=== PATIENT | male | born 1980 | race Caucasian/White ===

== ENCOUNTER 2017-09-21 03:47 | Emergency (ER) | payer OTHER ==
[2017-09-21 03:56] VITALS: BP 137/68; PULSE 97; RESP 18; TEMP 97.8
[2017-09-21] MEDS ORDERED: DIPH,PERTUS(ACELL)TETVAC-LF 0.5 ML VIAL IM ONE (04:10)
--- NOTE | 2017-09-21 04:18 | ED ---
General Adult HPI - General Chief complaint: Wound/Laceration Stated complaint: I[facility]-finger lac Time Seen by Provider: 09/21/17 03:58 Source: patient, RN notes reviewed Mode of arrival: ambulatory Limitations: no limitations - History of Present Illness Initial comments: 37-year-old male presents for evaluation of left third digit laceration. Patient's sister was a significant amount of bleeding. He is unable to control this bleeding prior to arrival. 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 Denies any other injury. Uncertain of his tetanus status. Patient has no other medical problems. - Related Data Allergies Allergy/AdvReac Type Severity Reaction Status Date / Time No Known Allergies Allergy Verified 09/21/17 03:56 Review of Systems ROS Statement: Those systems with pertinent positive or pertinent negative responses have been documented in the HPI. ROS Other: All systems not noted in ROS Statement are negative. Past Medical History Past Medical History: No Reported History History of Any Multi-Drug Resistant Organisms: None Reported Past Surgical History: No Surgical Hx Reported Past Psychological History: ADD/ADHD Smoking Status: Heavy tobacco smoker Past Alcohol Use History: Occasional Past Drug Use History: None Reported General Exam Limitations: no limitations General appearance: alert, in no apparent distress Head exam: Present: atraumatic, normocephalic Eye exam: Present: normal appearance, PERRL ENT exam: Present: mucous membranes dry Neck exam: Present: normal inspection. Absent: tenderness Respiratory exam: Present: normal lung sounds bilaterally. Absent: respiratory distress Cardiovascular Exam: Present: regular rate, normal rhythm Extremities exam: Present: other (Laceration to the left third digit distal phalanx. This involves the nail. This is a evaluation of both nail and a component of the nailbed. There is no deep repairable laceration.) Course Vital Signs 09/21/17 03:52 Temperature 97.8 F Pulse Rate 97 Respiratory 18 Rate Blood Pressure 137/68 O2 Sat by Pulse 98 Oximetry Medical Decision Making - Medical Decision Making 37-year-old male presents with laceration and avulsion. There is a avulsion of the distal nail left third finger with underlying nail bed injury. No repairable laceration. No exposed bone. The eponychium and is not involved. Wound is cleansed with tap water and Betadine. Hemostasis is achieved. Bacitracin applied and sterile dressing. Tetanus is updated. Patient will return with signs of infection. Follow-up with primary care physician. Disposition Clinical Impression: Laceration Disposition: HOME SELF-CARE Condition: Good Instructions: Laceration (ED) Referrals: None,Stated [Primary Care Provider] - 1-2 days Seema Florence MD [REFERRING] - 1-2 days Time of Disposition: 04:18
== END 2017-09-21 04:26 | disposition home or self-care (01) ==
LOC: EC 03:47
DX: S61.213A Laceration without foreign body of left middle finger without damage to nail, initial encounter (principal); F17.200 Nicotine dependence, unspecified, uncomplicated; Z23 Encounter for immunization; Y99.0 Civilian activity done for income or pay; W45.8XXA Other foreign body or object entering through skin, initial encounter
CPT/HCPCS: 90471; 90715; 99282

== ENCOUNTER 2020-09-11 16:41 | Observation (INO) | payer BC, OTHER ==
[2020-09-11] MEDS ORDERED: ASPIRIN 81 MG PO STA (17:50)
[2020-09-11] MEDS ORDERED: SODIUM CHLORIDE 0.9% 500 ML 500 ML IV STA (17:50)
--- NOTE | 2020-09-11 17:55 | ED ---
Chest Pain HPI - General Chief Complaint: Chest Pain Stated Complaint: chest pain Time Seen by Provider: 09/11/20 17:40 Source: patient Mode of arrival: ambulatory Limitations: no limitations - History of Present Illness Initial Comments: Patient is a 40-year-old male presenting to emergency Department with complaints of chest pain that started earlier today. Patient states he was having some mild discomfort in the right side of his chest earlier this morning and throughout the day has been moving towards the center and towards the left side of his chest. He describes it the pain as pressure, tightness feeling. He states it is intermittent, not constant. He states he doesn't really feel short of breath, no fever, no recent cough. He denies history of asthma or COPD, he is an every day smoker. He denies history of heart disease. He takes no medications. He states he has had pneumonia in the past. He does admit to some nausea yesterday and today, no vomiting, no abdominal pain, no diarrhea. He denies having a headache or blurry vision. He has no further complaints. Upon arrival to the ER, his tonsils 107, rest of vitals normal. - Related Data Home Medications Medication Instructions Recorded Confirmed No Known Home Medications 09/11/20 09/11/20 Allergies Allergy/AdvReac Type Severity Reaction Status Date / Time No Known Allergies Allergy Verified 09/11/20 18:51 Review of Systems ROS Statement: Those systems with pertinent positive or pertinent negative responses have been documented in the HPI. ROS Other: All systems not noted in ROS Statement are negative. EKG Findings - EKG Comments: EKG Findings:: Sinus tachycardia, no signs of acute ischemia. Ventricular rate 105, HI interval 146, QT 334. Past Medical History Past Medical History: No Reported History History of Any Multi-Drug Resistant Organisms: None Reported Past Surgical History: No Surgical Hx Reported Past Psychological History: ADD/ADHD Past Alcohol Use History: Occasional Past Drug Use History: None Reported General Exam - General Exam Comments Initial Comments: GENERAL: Patient is well-developed and well-nourished. Patient is nontoxic and in no acute distress. HEAD: Atraumatic, normocephalic. EYES: Pupils equal round and reactive to light, extraocular movements intact, sclera anicteric, conjunctiva are normal. Eyelids were unremarkable. ENT: TMs normal, nares patent, oropharynx clear without exudates. Moist mucous membranes. NECK: Normal range of motion, supple without lymphadenopathy or JVD. LUNGS: Unlabored respirations. Breath sounds clear to auscultation bilaterally and equal. No wheezes rales or rhonchi. HEART: Regular rate and rhythm without murmurs, rubs or gallops. ABDOMEN: Soft, nontender, normoactive bowel sounds. No guarding, no rebound. No masses appreciated. : Deferred MUSCULOSKELETAL: Normal extremities with adequate strength and normal range of motion, no pitting or edema. No clubbing or cyanosis. NEUROLOGICAL: Patient is alert and oriented x 3. Motor and sensory are also intact. Cranial nerves II through XII grossly intact. Symmetrical smile. Normal speech, normal gait. PSYCH: Normal mood, normal affect. SKIN: Warm, Dry, normal turgor, no rashes or lesions noted. Limitations: no limitations Course Vital Signs 09/11/20 09/11/20 16:57 17:59 Temperature 98.6 F Pulse Rate 107 H Respiratory 18 18 Rate Blood Pressure 133/90 O2 Sat by Pulse 98 Oximetry Chest Pain [facility] Patient is a 40-year-old male here for chest tightness and pressure that started this morning. His vital signs are stable he's afebrile. His EKG did not show any acute process but was slightly tachycardia. Denies history of heart disease, and is not taking any medications. Labs showed leukocytosis 17.2, d- dimer is negative, rest of labs are normal, normal troponin. Chest x-ray does show increased interstitial into the compared to old exam, could relate to interstitial pneumonia. Given patient's history and chest discomfort, patient will be admitted for serial troponins, be started on treatment for pneumonia, dose of Rocephin and azithromycin given in the ER. Patient is agreement with this plan of care. Patient accepted by Dr. Delgadillo. Case discussed with Dr. Brambila. Disposition Clinical Impression: Chest pain, Pneumonia Disposition: ADMITTED IP TO THIS HOSP Condition: Stable Referrals: None,Stated [Primary Care Provider] - 1-2 days Decision Date: 09/11/20 Decision Time: 19:00
[2020-09-11 18:14] LABS: Basophils # (A) 0.2 k/uL (0-0.2); Basophils % (A) 1 %; Eosinophils # (A) 0.4 k/uL (0-0.7); Eosinophils % (A) 2 %; HCT 49.6 % (39.0-53.0); Lymphocytes # (A) 3.3 k/uL (1.0-4.8); Lymphocytes % (A) 19 %; MCH 31.6 pg (25.0-35.0); MCHC 34.3 g/dL (31.0-37.0); MCV 92.2 fL (80.0-100.0); Mean Platelet Volume 8.6; Monocytes # (A) 0.8 k/uL (0-1.0); Monocytes % (A) 5 %; Neutrophils # (A) 12.4 k/uL (1.3-7.7); Neutrophils % (A) 72 %; Platelet Count 284 k/uL (150-450); RBC 5.38 m/uL (4.30-5.90); RDW 13.5 % (11.5-15.5); WBC 17.2 k/uL (3.8-10.6)
[2020-09-11 18:22] LABS: ALT 51 U/L (4-49); AST 44 U/L (17-59); African American GFR (CKD) >90 (>60 ml/min/1.73 sqM); Albumin 4.6 g/dL (3.5-5.0); Alkaline Phosphatase 116 U/L (38-126); Anion Gap 9 mmol/L; Blood Urea Nitrogen 4 mg/dL (9-20); Calcium 9.8 mg/dL (8.4-10.2); Carbon Dioxide 23 mmol/L (22-30); Chloride 105 mmol/L (98-107); Glucose 106 mg/dL (74-99); Magnesium 1.9 mg/dL (1.6-2.3); Non-African American GFR(CKD) >90 (>60 ml/min/1.73 sqM); Potassium 3.8 mmol/L (3.5-5.1); Sodium 137 mmol/L (137-145); Total Bilirubin 0.6 mg/dL (0.2-1.3)
--- NOTE | 2020-09-11 18:27 | XR ---
EXAMINATION TYPE: XR chest 2V DATE OF EXAM: 09/11/2020 COMPARISON: 11/08/2015 HISTORY: Chest pain TECHNIQUE: FINDINGS: There is no heart failure nor confluent pneumonic infiltrate. There is some coarsening of i nterstitial markings. Heart size is normal. There are chest leads. Costophrenic angles are clear. IMPRESSION: Mild increased interstitial pulmonary density compared to old exam could relate to minima l interstitial pneumonia. Normal heart.
[2020-09-11 18:37] LABS: D-Dimer 0.21 mg/L FEU (<0.60); INR 0.9 (<1.2); Partial Thromboplastin Time 27.8 sec (22.0-30.0); Prothrombin Time 9.9 sec (9.0-12.0)
[2020-09-11] MEDS ORDERED: NITROGLYCERIN SL TABS 0.4 MG TAB SUBLINGUAL PRN (18:56)
[2020-09-11] MEDS ORDERED: cefTRIAXone IN SWFI 1,000 MG/10 ML SYRINGE IVP STA (19:00)
[2020-09-11] MEDS ORDERED: AZITHROMYCIN 500 MG TAB PO STA (19:00)
[2020-09-12 00:57] LABS: Cholesterol 217 mg/dL (<200); HDL Cholesterol 18 mg/dL (40-60); Triglycerides 487 mg/dL (<150)
--- NOTE | 2020-09-12 08:20 | P.HPIM ---
History of Present Illness This is a pleasant 40 years old male with no significant past medical history. He does not follow up with PCP because he just got his medical insurance. He presents because of chest pain of one-day duration of about 3-4/10 in severity felt like dull and sharp, mainly on the right side and then moved to the left side with pain also in both arms, also patient feels like something stuck in his throat on stroking. He denies coughing or dyspnea. No fever or chills. His most about 1.5 pack per day, patient counseled to quit and he agrees but he declined nicotine patch. Occasional alcohol and no illicit drugs Vitals stable. Labs showed leukocytosis with WBC of 17.8, rest of CBC, BMP and liver enzymes were unremarkable. INR is normal at 0.9, d-dimer is negative at 0.21, serial troponins are negative with less than 0.012. EKG is not available in the electronic records Chest x-ray: Mild increased interstitial pulmonary density compared to old exam could lead to minimal interstitial pneumonia. Normal heart Emergency room patient received Zithromax and Rocephin and aspirin 325 mg Review of Systems CONSTITUTIONAL: No fever, no malaise, no fatigue. HEENT: No recent visual problems or hearing problems. Denied any sore throat. CARDIOVASCULAR: No orthopnea, PND, no palpitations, no syncope. PULMONARY: No shortness of breath, no cough, no hemoptysis. GASTROINTESTINAL: No diarrhea, no nausea, no vomiting, no abdominal pain. Normoactive bowel sounds. NEUROLOGICAL: No headaches, no weakness, no numbness. HEMATOLOGICAL: Denies any bleeding or petechiae. GENITOURINARY: Denies any burning micturition, frequency, or urgency. MUSCULOSKELETAL/RHEUMATOLOGICAL: Denies any joint pain, swelling, or any muscle pain. ENDOCRINE: Denies any polyuria or polydipsia. Past Medical History Past Medical History: No Reported History History of Any Multi-Drug Resistant Organisms: None Reported Past Surgical History: No Surgical Hx Reported Past Anesthesia/Blood Transfusion Reactions: No Reported Reaction Past Psychological History: ADD/ADHD Smoking Status: Current every day smoker Past Alcohol Use History: Occasional Past Drug Use History: None Reported Medications and Allergies Home Medications Medication Instructions Recorded Confirmed Type No Known Home Medications 09/11/20 09/11/20 History Allergies Allergy/AdvReac Type Severity Reaction Status Date / Time No Known Allergies Allergy Verified 09/11/20 18:51 Physical Exam Vitals: Vital Signs Temp Pulse Pulse Resp BP BP Pulse Ox 09/12/20 03:00 98.2 F 80 15 113/70 94 L 09/11/20 21:00 97.8 F 88 16 126/79 98 09/11/20 19:42 100 20 117/78 97 09/11/20 17:59 18 09/11/20 16:57 98.6 F 107 H 18 133/90 98 Intake and Output 09/11/20 09/12/20 09/12/20 22:59 06:59 14:59 Intake Total 240 540 Balance 240 540 Intake: Oral 240 540 Other: Voiding Method Toilet Toilet # Voids 1 2 Weight 90.718 kg GENERAL: The patient is alert and oriented x3, not in any acute distress. Well developed, well nourished. HEENT: Pupils are round and equally reacting to light. EOMI. No scleral icterus. No conjunctival pallor. Normocephalic, atraumatic. No pharyngeal erythema. No thyromegaly. CARDIOVASCULAR: S1 and S2 present. No murmurs, rubs, or gallops. PULMONARY: Chest is clear to auscultation, no wheezing or crackles. ABDOMEN: Soft, nontender, nondistended, normoactive bowel sounds. No palpable organomegaly. MUSCULOSKELETAL: No joint swelling or deformity. EXTREMITIES: No cyanosis, clubbing, or pedal edema. NEUROLOGICAL: Gross neurological examination did not reveal any focal deficits. SKIN: No rashes. No petechiae Results CBC & Chem 7: 09/11/20 18:07 09/11/20 18:07 Labs: Abnormal Lab Results - Last 24 Hours (Table) 09/11/20 09/11/20 09/11/20 Range/Units 18:07 18:07 23:49 WBC 17.2 H (3.8-10.6) k/uL Neutrophils # 12.4 H (1.3-7.7) k/uL BUN 4 L (9-20) mg/dL Glucose 106 H (74-99) mg/dL ALT 51 H (4-49) U/L Triglycerides 487 H (<150) mg/dL Cholesterol 217 H (<200) mg/dL HDL Cholesterol 18 L (40-60) mg/dL Thrombosis Risk Factor Assmnt - Choose All That Apply Each Factor Represents 1 point: Obesity (BMI >25) Thrombosis Risk Factor Assessment Total Risk Factor Score: 1 Thrombosis Risk Factor Assessment Level: Low Risk Assessment and Plan Assessment: Chest pain, rule out cardiac causes. d-dimer is negative at 0.21. Possible interstitial pneumonia Nicotine dependence Plan: this is a pleasant 80 years old male who presents with chest pain and possible pneumonia. We'll do serial troponin, cardiology consult, check echocardiogram. Continue with antibiotics. Labs and medication were reviewed.. Continue same treatment. Continue with symptomatic treatment. Resume home medication. Monitor lytes and vitals. DVT and GI prophylaxis. Further recommendations depends on the clinical course of the patient DVT prophylaxis: Subcutaneous heparin GI Prophylaxis: Pepcid
[2020-09-12] MEDS ORDERED: ASPIRIN 325 MG TAB PO SCH (09:00)
[2020-09-12] MEDS ORDERED: FAMOTIDINE 20 MG/2 ML VIAL IV SCH (09:00)
[2020-09-12] MEDS: HEPARIN SODIUM,PORCINE 5,000 UNIT/ML 1 ML VIAL SQ SCH ×2 (09:10→20:06)
[2020-09-12] MEDS: METOPROLOL TARTRATE 25 MG TAB PO SCH (09:11)
--- NOTE | 2020-09-12 10:05 | P.CRDCN ---
History of Present Illness History of present illness: HISTORY OF PRESENTING ILLNESS This is a pleasant 40-year-old male past medical history significant for chronic nicotine dependence. His father had 4-way bypass in his mid-40's. He denies personal history of coronary artery disease and does not follow in the office with a systems development consultant. We have been asked to see in consultation for chest pain. He states for the previous 3-4 days he has been experiencing sharp pain in his chest mostly on the right anterior region. The pain is described as brief and sharp in nature. There is no radiation or associated symptoms. He is coughing and has been for a couple days. His pain is sometimes exacerbated by deep breathing and coughing but other times comes for no specific reason. DIAGNOSTICS EKG reveals sinus tachycardia heart rate 105 with non-specific changes. Chest xray reveals mild increased interstitial pulmonary density could relate to interstitial pneumonia. Laboratory reviewed, WBC 17.2, hemoglobin 17, platelets 284, d-dimer 0.21, sodium 137, potassium 3.8, creatinine 0.74, magnesium 1.9, cardiac enzymes negative 3, triglycerides 487 and total cholesterol 217. He takes no daily cardiac medications and does not follow regularly with the PCP. REVIEW OF SYSTEMS At the time of my exam: CONSTITUTIONAL: Denies fever or chills. CARDIOVASCULAR: Denies chest pain, shortness of breath, orthopnea, PND or palpitations. RESPIRATORY: Denies cough. GASTROINTESTINAL: Denies abdominal pain, diarrhea, constipation, nausea or vomiting. MUSCULOSKELETAL: Denies myalgias. NEUROLOGIC: Denies numbness, tingling or weakness. ENDOCRINE: Denies fatigue, weight change, polydipsia or polyurina. GENITOURINARY: Denies burning, hematuria or urgency with micturation. HEMATOLOGIC: Denies history of anemia or bleeding. PHYSICAL EXAMINATION Blood pressure 113/73 heart rate 88 afebrile and maintaining oxygen saturation on room air. CONSTITUTIONAL: No apparent distress. HEENT: Head is normocephalic. Pupils are equal, round. Sclerae anicteric. Mucous membranes of the mouth are moist. No JVD. No carotid bruit. CHEST EXAMINATION: Lungs are clear to auscultation. No chest wall tenderness is noted on palpation or with deep breathing. HEART EXAMINATION: Regular rate and rhythm. S1, S2 heard. No murmurs, gallops or rub. ABDOMEN: Soft, nontender. Positive bowel sounds. EXTREMITIES: 2+ peripheral pulses, no lower extremity edema and no calf tenderness. NEUROLOGIC EXAMINATION: Patient is awake, alert and oriented x3. ASSESSMENT Chest pain, pleuritic in nature secondary to pneumonia Pneumonia Leuckocytosis Dyslipidemia Elevated fasting blood glucose Chronic nicotine dependence Family history of premature coronary artery disease PLAN An acute coronary event has been ruled out. Continue medication for treatment of pneumonia. Check hgb A1C. Obtain 2D echocardiogram and doppler study to assess cardiac structure and func tion. Initiate atorvastatin 40 mg daily and lopressor 25 mg daily. Decrease aspirin to 81 mg daily. Recommend ongoing treatment for pneumonia and we will pursue outpatient stress testing. Smoking cessation recommended. Thank you kindly for this consultation. Nurse Practitioner note has been reviewed, I agree with a documented findings and plan of care. Patient was seen and examined. Past Medical History Past Medical History: No Reported History History of Any Multi-Drug Resistant Organisms: None Reported Past Surgical History: No Surgical Hx Reported Past Anesthesia/Blood Transfusion Reactions: No Reported Reaction Past Psychological History: ADD/ADHD Smoking Status: Current every day smoker Past Alcohol Use History: Occasional Past Drug Use History: None Reported Medications and Allergies Home Medications Medication Instructions Recorded Confirmed Type No Known Home Medications 09/11/20 09/11/20 History Allergies Allergy/AdvReac Type Severity Reaction Status Date / Time No Known Allergies Allergy Verified 09/11/20 18:51 Physical Exam Vitals: Vital Signs Temp Pulse Pulse Resp BP BP Pulse Ox 09/12/20 09:00 98.0 F 88 18 113/73 95 09/12/20 03:00 98.2 F 80 15 113/70 94 L 09/11/20 21:00 97.8 F 88 16 126/79 98 09/11/20 19:42 100 20 117/78 97 09/11/20 17:59 18 09/11/20 16:57 98.6 F 107 H 18 133/90 98 Intake and Output 09/11/20 09/12/20 09/12/20 22:59 06:59 14:59 Intake Total 240 540 Balance 240 540 Intake: Oral 240 540 Other: Voiding Method Toilet Toilet Toilet # Voids 1 2 2 Weight 90.718 kg Results 09/11/20 18:07 09/11/20 18:07 Cardiac Enzymes 09/11/20 09/11/20 09/11/20 Range/Units 18:07 18:07 20:53 AST 44 (17-59) U/L Troponin I <0.012 <0.012 (0.000-0.034) ng/mL 09/11/20 Range/Units 23:49 AST (17-59) U/L Troponin I <0.012 (0.000-0.034) ng/mL Coagulation 09/11/20 Range/Units 18:07 PT 9.9 (9.0-12.0) sec APTT 27.8 (22.0-30.0) sec Lipids 09/11/20 Range/Units 23:49 Triglycerides 487 H (<150) mg/dL Cholesterol 217 H (<200) mg/dL HDL Cholesterol 18 L (40-60) mg/dL CBC 09/11/20 Range/Units 18:07 WBC 17.2 H (3.8-10.6) k/uL RBC 5.38 (4.30-5.90) m/uL Hgb 17.0 (13.0-17.5) gm/dL Hct 49.6 (39.0-53.0) % Plt Count 284 (150-450) k/uL Comprehensive Metabolic Panel 09/11/20 Range/Units 18:07 Sodium 137 (137-145) mmol/L Potassium 3.8 (3.5-5.1) mmol/L Chloride 105 (98-107) mmol/L Carbon Dioxide 23 (22-30) mmol/L BUN 4 L (9-20) mg/dL Creatinine 0.74 (0.66-1.25) mg/dL Glucose 106 H (74-99) mg/dL Calcium 9.8 (8.4-10.2) mg/dL AST 44 (17-59) U/L ALT 51 H (4-49) U/L Alkaline Phosphatase 116 (38-126) U/L Total Protein 8.0 (6.3-8.2) g/dL Albumin 4.6 (3.5-5.0) g/dL Current Medications Generic Name Dose Route Start Last Admin Trade Name Freq PRN Reason Stop Dose Admin Aspirin 325 mg 09/12/20 09:00 09/12/20 09:11 Aspirin 325 Mg Tab PO 325 mg DAILY JOHN Administration Azithromycin 500 mg 09/12/20 19:00 Azithromycin 500 Mg Tab PO DAILY@1900 [facility] Famotidine 20 mg 09/12/20 09:00 09/12/20 09:10 Famotidine 20 Mg/2 Ml Vial IV 20 mg Q12HR JOHN Administration Heparin Sodium (Porcine) 5,000 unit 09/12/20 09:00 09/12/20 09:10 Heparin Sodium,Porcine 5,000 Unit/Ml 1 Ml Vial SQ 5,000 unit Q12HR JOHN Administration Ceftriaxone Sodium 1 gm/ 50 mls @ 100 mls/hr 09/12/20 09:00 09/12/20 09:10 Sodium Chloride IVPB 100 mls/hr Q24HR JOHN Administration Metoprolol Tartrate 25 mg 09/12/20 09:00 09/12/20 09:11 Metoprolol Tartrate 25 Mg Tab PO 25 mg DAILY JOHN Administration Nitroglycerin 0.4 mg 09/11/20 18:56 Nitroglycerin Sl Tabs 0.4 Mg Tab SUBLINGUAL Q5M PRN Chest Pain Intake and Output 09/11/20 09/12/20 09/12/20 22:59 06:59 14:59 Intake Total 240 540 Balance 240 540 Intake: Oral 240 540 Other: Voiding Method Toilet Toilet Toilet # Voids 1 2 2 Weight 90.718 kg 09/11/20 18:07 09/11/20 18:07
--- NOTE | 2020-09-12 10:08 | P.CNPUL ---
History of Present Illness Reason for consult: dyspnea, cough, chest pain Chief complaint: Chest pain or shortness of breath for one day duration History of present illness: This is a 40-year-old male with the significant history of smoking one pack per day patient is otherwise in good state of health for last 24-48 hours started having severe type of pleuritic chest pain with some inspiratory component pain was retrosternal both side of the chest started yesterday get intense brought him into the hospital, patient has no code exposure but cannot deny any subtle exposure, he does have cough shortness of breath on Thursday day duration, his chest x-ray significant for interstitial infiltrate, WBC count is high, cardiovascular services have been consulted as well, I was asked to evaluate the patient for pneumonia, patient has been on antibiotics, his pain severity however has improved, Review of Systems All systems: negative Past Medical History Past Medical History: No Reported History History of Any Multi-Drug Resistant Organisms: None Reported Past Surgical History: No Surgical Hx Reported Past Anesthesia/Blood Transfusion Reactions: No Reported Reaction Past Psychological History: ADD/ADHD Smoking Status: Current every day smoker Past Alcohol Use History: Occasional Past Drug Use History: None Reported Medications and Allergies Home Medications Medication Instructions Recorded Confirmed Type No Known Home Medications 09/11/20 09/11/20 History Allergies Allergy/AdvReac Type Severity Reaction Status Date / Time No Known Allergies Allergy Verified 09/11/20 18:51 Physical Exam Vitals: Vital Signs Temp Pulse Pulse Resp BP BP Pulse Ox 09/12/20 09:00 98.0 F 88 18 113/73 95 09/12/20 03:00 98.2 F 80 15 113/70 94 L 09/11/20 21:00 97.8 F 88 16 126/79 98 09/11/20 19:42 100 20 117/78 97 09/11/20 17:59 18 09/11/20 16:57 98.6 F 107 H 18 133/90 98 Intake and Output 09/11/20 09/12/20 09/12/20 22:59 06:59 14:59 Intake Total 240 540 Balance 240 540 Intake: Oral 240 540 Other: Voiding Method Toilet Toilet Toilet # Voids 1 2 2 Weight 90.718 kg - Constitutional General appearance: average body habitus, disheveled - EENT Eyes: EOMI, PERRLA Ears: bilateral: normal - Neck Neck: normal ROM Carotids: bilateral: upstroke normal Thyroid: bilateral: normal size - Respiratory Respiratory: bilateral: CTA - Cardiovascular Rhythm: regular Heart sounds: normal: S1, S2 - Gastrointestinal General gastrointestinal: normal bowel sounds - Integumentary Integumentary: normal turgor - Neurologic Neurologic: CNII-XII intact - Musculoskeletal Musculoskeletal: gait normal, generalized weakness, strength equal bilaterally - Psychiatric Psychiatric: A&O x's 3, appropriate affect, intact judgment & insight Results - Laboratory Findings CBC and BMP: 09/11/20 18:07 09/11/20 18:07 PT/INR, D-dimer PT 9.9 sec (9.0-12.0) 09/11/20 18:07 INR 0.9 (<1.2) 09/11/20 18:07 D-Dimer 0.21 mg/L FEU (<0.60) 09/11/20 18:07 Abnormal lab findings: Abnormal Labs 09/11/20 09/11/20 09/11/20 18:07 18:07 23:49 WBC 17.2 H Neutrophils # 12.4 H BUN 4 L Glucose 106 H ALT 51 H Triglycerides 487 H Cholesterol 217 H HDL Cholesterol 18 L - Diagnostic Findings Chest x-ray: report reviewed, image reviewed (Finding as noted above) Assessment and Plan Assessment: Bilateral retrosternal chest pain with symptoms of shortness of breath and cough Bilateral interstitial pneumonia covid19 cannot be excluded Leukocytosis History of smoking and nicotine use History of snoring likely sleep disorder breathing and sleep apnea Plan: Agree with cardiovascular evaluation Broad-spectrum antibiotics Deep breathing exercise incentive spirometry Check for covid testing Order inflammation parameters Ordered d-dimer, if elevated may need a spiral CT scan of the chest Further recommendations pending plan of care as per clinical response of the patient Patient need outpatient COPD evaluation and polysomnogram Time with Patient: Greater than 30
--- NOTE | 2020-09-12 10:13 | XR ---
EXAMINATION TYPE: XR chest 1V DATE OF EXAM: 09/12/2020 COMPARISON: 09/11/2020 HISTORY: Pneumonia, chest pain TECHNIQUE: Single frontal view of the chest is obtained. FINDINGS: Subsegmental changes at the right lung base. Heart size normal. No overt failure or pneumo thorax. No sizable pleural effusion. IMPRESSION: Basilar atelectasis favored over pneumonia.
[2020-09-12] MEDS: ATORVASTATIN 40 MG TAB PO SCH (10:32)
[2020-09-12 11:29] LABS: C Reactive Protein 27.8 mg/L (<10.0)
--- NOTE | 2020-09-12 12:55 | ECHOF ---
Referral Reason:Rule out heart disease MEASUREMENTS -------- HEIGHT: 165.1 cm WEIGHT: 90.7 kg BP: 133/90 RVIDd: 3.4 cm (< 3.3) IVSd: 1.1 cm (0.6 - 1.1) LVIDd: 3.2 cm (3.9 - 5.3) LVPWd: 1.1 cm (0.6 - 1.1) IVSs: 1.7 cm LVIDs: 1.9 cm LVPWs: 1.7 cm LAESV Index (A-L): 19.22 ml/m Ao Diam: 3.0 cm (2.0 - 3.7) AV Cusp: 2.2 cm (1.5 - 2.6) MV EXCURSION: 18.919 mm (> 18.000) MV EF SLOPE: 64 mm/s (70 - 150) EPSS: 0.5 cm MV E Vern: 0.94 m/s MV DecT: 190 ms MV A Vern: 0.94 m/s MV E/A Ratio: 1.00 RAP: 5.00 mmHg RVSP: 22.79 mmHg FINDINGS -------- Sinus rhythm. This was a technically adequate study. The left ventricular size is normal. There is mild concentric left ventricular hypertrophy. Overa ll left ventricular systolic function is normal with, an EF between 55 - 60 %. The diastolic fillin g pattern is normal for the age of the patient 6.34. The right ventricle is mildly enlarged. Normal LA size by volume 22+/-6 ml/m2. The right atrial size is normal. Interatrial and interventricular septum intact. The aortic valve is trileaflet and appears structurally normal. There is no evidence of aortic regu rgitation. There is no evidence of aortic stenosis. No mitral regurgitation. Mild tricuspid regurgitation present. There is no evidence of pulmonary hypertension. The right v entricular systolic pressure, as measured by Doppler, is 22.79mmHg. There is no pulmonic regurgitation present. The aortic root size is normal. Normal inferior vena cava with normal inspiratory collapse consistent with estimated right atrial pre ssure of 5 mmHg. There is no pericardial effusion. CONCLUSIONS -------- 1. The left ventricular size is normal. 2. There is mild concentric left ventricular hypertrophy. 3. Overall left ventricular systolic function is normal with, an EF between 55 - 60 %. 4. The diastolic filling pattern is normal for the age of the patient 6.34 5. The right ventricle is mildly enlarged. 6. Mild tricuspid regurgitation present. SALES CORRESPONDENT: Hanane Blake RDCS
[2020-09-12 17:03] LABS: Hemoglobin A1C 6.1 % (4.0-6.0)
[2020-09-12] MEDS ORDERED: AZITHROMYCIN 500 MG TAB PO SCH (19:00)
[2020-09-12] MEDS: FAMOTIDINE 20 MG TAB PO SCH (20:06)
[2020-09-12 21:16] LABS: Ferritin 109.9 ng/mL (22.0-322.0)
[2020-09-13 08:50] VITALS: BP 136/76; PULSE 92; RESP 14; TEMP 98
[2020-09-13] MEDS: METOPROLOL TARTRATE 25 MG TAB PO SCH (08:52)
[2020-09-13] MEDS: HEPARIN SODIUM,PORCINE 5,000 UNIT/ML 1 ML VIAL SQ SCH (08:52)
[2020-09-13] MEDS: FAMOTIDINE 20 MG TAB PO SCH (08:52)
[2020-09-13] MEDS: ATORVASTATIN 40 MG TAB PO SCH (08:52)
[2020-09-13] MEDS ORDERED: ASPIRIN 81 MG PO SCH (09:00)
--- NOTE | 2020-09-13 09:36 | P.PN ---
Subjective HISTORY OF PRESENTING ILLNESS This is a pleasant 40-year-old male past medical history significant for chronic nicotine dependence. His father had 4-way bypass in his mid-40's. He denies personal history of coronary artery disease and does not follow in the office with a patient care representative. He is seen and examined sitting up in bed in no acut e distress. Repeat chest xray this morning reveals basilar atelectasis favored over pneumonia. Blood pressure 136/76 heart rate 92 afebrile and maintaining oxygen saturation on room air. Laboratory data reviewed, hgb A1C 6.1. Echocardiogram obtained revealed preserved LV systolic function with EF 55-60%. PHYSICAL EXAMINATION CONSTITUTIONAL: No apparent distress. HEENT: Head is normocephalic. Pupils are equal, round. Sclerae anicteric. Mucous membranes of the mouth are moist. No JVD. No carotid bruit. CHEST EXAMINATION: Lungs are clear to auscultation. No chest wall tenderness is noted on palpation or with deep breathing. HEART EXAMINATION: Regular rate and rhythm. S1, S2 heard. No murmurs, gallops or rub. EXTREMITIES: 2+ peripheral pulses, no lower extremity edema and no calf tenderne ss. ASSESSMENT Chest pain, pleuritic in nature secondary to pneumonia Pneumonia Leuckocytosis Dyslipidemia Elevated fasting blood glucose Chronic nicotine dependence Family history of premature coronary artery disease PLAN Stable on current medical regimen from a cardiac perspective. We will pursue outpatient stress testing in the office in 2 weeks. Follow up with Dr. Jhaveri. We will follow along as needed. Nurse Practitioner note has been reviewed, I agree with a documented findings and plan of care. Patient was seen and examined. Objective - Vital Signs Vital signs: Vital Signs Temp 98.0 F 09/13/20 08:50 Pulse 92 09/13/20 08:50 Resp 14 09/13/20 08:50 BP 136/76 09/13/20 08:50 Pulse Ox 97 09/13/20 08:50 Intake & Output 09/12/20 09/13/20 09/13/20 18:59 06:59 18:59 Intake Total 770 Output Total 2 Balance 770 -2 Intake: Intake, IV Titration 50 Amount cefTRIAXone 1 gm In 50 Sodium Chloride 0.9% 50 ml @ 100 mls/hr IVPB Q24HR [facility] Rx#:[id number] Oral 720 Output: Urine 2 Other: Voiding Method Toilet # Voids 2 0 - Labs CBC & Chem 7: 09/11/20 18:07 09/11/20 18:07 Labs: Abnormal Lab Results - Last 24 Hours (Table) 09/12/20 09/12/20 Range/Units 10:47 10:47 Hemoglobin A1c 6.1 H (4.0-6.0) % C-Reactive Protein 27.8 H (<10.0) mg/L
[2020-09-13 09:47] LABS: Basophils # (A) 0.1 k/uL (0-0.2); Basophils % (A) 1 %; Eosinophils # (A) 0.5 k/uL (0-0.7); Eosinophils % (A) 3 %; HCT 46.3 % (39.0-53.0); HGB 15.5 gm/dL (13.0-17.5); Lymphocytes # (A) 2.8 k/uL (1.0-4.8); Lymphocytes % (A) 15 %; MCH 31.2 pg (25.0-35.0); MCHC 33.4 g/dL (31.0-37.0); MCV 93.4 fL (80.0-100.0); Mean Platelet Volume 8.4; Monocytes % (A) 5 %; Neutrophils # (A) 13.7 k/uL (1.3-7.7); Neutrophils % (A) 75 %; Platelet Count 270 k/uL (150-450); RBC 4.96 m/uL (4.30-5.90); RDW 13.5 % (11.5-15.5); WBC 18.3 k/uL (3.8-10.6)
--- NOTE | 2020-09-13 23:46 | P.DS ---
Providers Date of admission: 09/11/20 18:56 Attending physician: Quentin Delgadillo Consults: 09/11/20 18:56 Consult Physician Urgent Consulting Provider: [facility] Consult Reason/Comments: chest pain Do you want consulting provider notified?: Yes 09/12/20 10:33 Consult Physician Urgent Consulting Provider: Marlo Portillo Consult Reason/Comments: shortness of breath Do you want consulting provider notified?: Yes 09/12/20 13:37 Consult Physician Urgent Consulting Provider: Marlo Portillo Consult Reason/Comments: pnA Do you want consulting provider notified?: Already Contacted Primary care physician: Stated None Hospital Course: Diagnoses Chest pain, cardiac causes were ruled out. d-dimer is negative at 0.21. Bilateral interstitial pneumonia , patient with no symptoms on discharge Nicotine dependence Leukocytosis History of smoking and nicotine use Hospital course: This is a pleasant 40 years old male with no significant past medical history. He does not follow up with PCP because he just got his medical insurance. He presents because of chest pain of one-day duration of about 3-4/10 in severity felt like dull and sharp, mainly on the right side and then moved to the left side with pain also in both arms, also patient feels like something stuck in his throat on stroking. He denies coughing or dyspnea. No fever or chills. Chest x-ray: Mild increased interstitial pulmonary density compared to old exam could lead to minimal interstitial pneumonia. Normal heart. Patient was treated with Zithromax and ceftriaxone, his symptoms improved. Also [employer] evaluated the patient and recommended outpatient stress test. Pulmonary team evaluated the patient and they cleared the patient today for discharge Patient is saturating 99.9 today yesterday. He remained afebrile today. His symptoms improved and patient on the day of discharge he denies chest pain, no dyspnea, no coughing or other respiratory symptoms, the bedside nurse called and stated The patient was cleared for discharge by [employer] and wellness nurse team. I went to see the patient, he was sitting comfortable on chair already dressed up with mask and face and he wants to go home rather than keep monitoring him in the hospital. Patient was instructed extensively if he develops any respiratory symptoms of dyspnea, or coughing, or chest pain, worsened fever to call 911 on come back to the hospital, he verbalized understanding and acceptance. Also patient is aware that his covid test is still pending and patient was instructed to follow the CDC guidelines for isolation. Patient's was instructed to follow up with PCP Dr. Littlejohn in one week, patient is going to call and make appointment or walk-in he is going to follow-up the covid test with him Patient is discharged on a course of oral antibiotics, inhaler, aspirin, metoprolol, Pepcid Problems and management plan were discussed with the patient and he verbalized understanding and acceptance Patient was found stable and can be discharged home however he needs follow-up as an outpatient. Patient was instructed to follow up with PCP Dr. Florence (new to him) within one week and patient agrees. Also patient agrees with that appoi ntment made for him with Dr. Portillo on 09/26, patient is going to monitor themselves and if he develops any worsening symptoms come back to the hospital. Gen: patient is a AAOx3, no distress CVS: S1-S2, RRR, no murmur Lungs: B/L CTA, no wheezing Abdomen: soft, no distention, no tenderness, positive bowel sounds Extremity: no leg edema or induration Time spent more than 35 minutes Patient Condition at Discharge: Stable Plan - Discharge Summary Discharge Rx Participant: No New Discharge Prescriptions: New Aspirin 81 mg PO DAILY #30 chew Cefuroxime Axetil [Ceftin] 500 mg PO BID 10 Days #20 tab Atorvastatin [Lipitor] 40 mg PO DAILY #30 tab Metoprolol Tartrate [Lopressor] 25 mg PO DAILY #30 tab Nitroglycerin Sl Tabs [Nitrostat] 0.4 mg SUBLINGUAL Q5M PRN #20 tab PRN Reason: Chest Pain Famotidine [Pepcid] 20 mg PO Q12HR #60 tab Azithromycin [Zithromax] 500 mg PO DAILY@1900 5 Days #5 tab Albuterol Inhaler [Ventolin Hfa Inhaler] 1 puff INHALATION RT-QID PRN #1 inh PRN Reason: Shortness Of Breath Or Wheezing Discharge Medication List Albuterol Inhaler [Ventolin Hfa Inhaler] 1 puff INHALATION RT-QID PRN #1 inh 09/13/20 [Rx] Aspirin 81 mg PO DAILY #30 chew 09/13/20 [Rx] Atorvastatin [Lipitor] 40 mg PO DAILY #30 tab 09/13/20 [Rx] Azithromycin [Zithromax] 500 mg PO DAILY@1900 5 Days #5 tab 09/13/20 [Rx] Cefuroxime Axetil [Ceftin] 500 mg PO BID 10 Days #20 tab 09/13/20 [Rx] Famotidine [Pepcid] 20 mg PO Q12HR #60 tab 09/13/20 [Rx] Metoprolol Tartrate [Lopressor] 25 mg PO DAILY #30 tab 09/13/20 [Rx] Nitroglycerin Sl Tabs [Nitrostat] 0.4 mg SUBLINGUAL Q5M PRN #20 tab 09/13/20 [Rx] Follow up Appointment(s)/Referral(s): Bhavesh Jhaveri MD [STAFF PHYSICIAN] - 2 Weeks (Tori in office will call you with an appointment date and time you will need stress test as an outpatient) Seema Florence MD [REFERRING] - 1 Week (Follow-up of covid test with your doctor and we recommend to check Hb A1c with your doctor as well ) Marlo Portillo MD [STAFF PHYSICIAN] - 09/26/20 1:30 pm (Follow-up of covid test with your doctor ) Activity/Diet/Wound Care/Special Instructions: Heart healthy diet Activity is restricted until you see your doctor Discharge Disposition: HOME SELF-CARE
== END 2020-09-13 16:11 | disposition home or self-care (01) ==
LOC: EC 16:41 → 3NCARDOBS 18:56 → INTOOBSV 09-13 12:00 → OBSVTOIN 09-13 12:00 → UNDODISIN 09-13 16:11
PROVIDERS: ADMIT Internal Medicine; ATTEND Internal Medicine
DX: R07.89 Other chest pain (principal); J84.9 Interstitial pulmonary disease, unspecified; F17.210 Nicotine dependence, cigarettes, uncomplicated; D72.829 Elevated white blood cell count, unspecified; R73.02 Impaired glucose tolerance (oral); R06.83 Snoring; Z20.828 Contact with and (suspected) exposure to other viral communicable diseases; R00.0 Tachycardia, unspecified; E78.5 Hyperlipidemia, unspecified; F90.9 Attention-deficit hyperactivity disorder, unspecified type; E66.9 Obesity, unspecified; Z68.33 Body mass index [BMI] 33.0-33.9, adult; Z87.01 Personal history of pneumonia (recurrent); Z82.49 Family history of ischemic heart disease and other diseases of the circulatory system
CPT/HCPCS: 93005 ×2; 96365; 96372 ×2; 96375; 96376; 96361; 99285; 36415; 93306; 85379 ×2; 80061; 80053; 82728; 83615; 83735; 84484; 85025 ×2; 85610; 85730; 86140; 83036; 71045; 71046; G0378 ×3; U0003; J1644 ×2; J0696 ×3; 96374

== ENCOUNTER 2021-12-09 23:30 | Emergency (ER) | payer BC ==
[2021-12-09 23:37] VITALS: BP 163/96; PULSE 100; RESP 22; TEMP 97.9
--- NOTE | 2021-12-10 01:04 | ED ---
General Adult HPI - General Chief complaint: ENT Stated complaint: ENT Time Seen by Provider: 12/10/21 00:48 Source: patient Mode of arrival: ambulatory Limitations: no limitations - History of Present Illness Initial comments: 41-year-old male with a past medical history of hyperlipidemia, hypertension presents to the emergency room for sinus infection. Patient states she has had this on and off for months. States he did have antibiotics over a month ago and a steroid pack and it seemed to help. However returned again about 5 days ago. Patient states there is congestion nasally as well as in his ears. States she has felt warm on and off. Denies any facial swelling. Patient states he feels he needs medications for this again.Patient has no other complaints at this time including shortness of breath, chest pain, abdominal pain, nausea or vomiting, headache, or visual changes. - Related Data Previous Rx's Medication Instructions Recorded Albuterol Inhaler [Ventolin Hfa 1 puff INHALATION RT-QID PRN #1 inh 09/13/20 Inhaler] Aspirin 81 mg PO DAILY #30 chew 09/13/20 Atorvastatin [Lipitor] 40 mg PO DAILY #30 tab 09/13/20 Azithromycin [Zithromax] 500 mg PO DAILY@1900 5 Days #5 tab 09/13/20 Cefuroxime Axetil [Ceftin] 500 mg PO BID 10 Days #20 tab 09/13/20 Famotidine [Pepcid] 20 mg PO Q12HR #60 tab 09/13/20 Metoprolol Tartrate [Lopressor] 25 mg PO DAILY #30 tab 09/13/20 Nitroglycerin Sl Tabs [Nitrostat] 0.4 mg SUBLINGUAL Q5M PRN #20 tab 09/13/20 Amoxicillin/Potassium Clav 1 tab PO Q12HR #20 tab 12/10/21 [Augmentin 875-125 Tablet] Fluticasone Nasal [place] [Flonase 1 spray EA NOSTRIL DAILY 7 Days 12/10/21 Nasal [place]] #16 gm Loratadine [Claritin] 10 mg PO DAILY #20 tab 12/10/21 methylPREDNISolone Dose Pack 4 mg PO DIRECTED #21 tab 12/10/21 [Medrol Dose Pack] Allergies Allergy/AdvReac Type Severity Reaction Status Date / Time No Known Allergies Allergy Verified 12/09/21 23:37 Review of Systems ROS Statement: Those systems with pertinent positive or pertinent negative responses have been documented in the HPI. ROS Other: All systems not noted in ROS Statement are negative. Past Medical History Past Medical History: Hyperlipidemia, Hypertension History of Any Multi-Drug Resistant Organisms: None Reported Past Surgical History: No Surgical Hx Reported Past Anesthesia/Blood Transfusion Reactions: No Reported Reaction Past Psychological History: ADD/ADHD Smoking Status: Current every day smoker Past Alcohol Use History: Occasional Past Drug Use History: None Reported General Exam Limitations: no limitations General appearance: alert, in no apparent distress Head exam: Present: atraumatic Eye exam: Present: normal appearance, PERRL, EOMI. Absent: scleral icterus, conjunctival injection ENT exam: Present: normal exam, normal oropharynx, mucous membranes moist, TM's normal bilaterally, normal external ear exam, other (No maxillary or frontal sinus tenderness or swelling.) Neck exam: Present: normal inspection, full ROM. Absent: tenderness Respiratory exam: Present: normal lung sounds bilaterally. Absent: respiratory distress, wheezes Cardiovascular Exam: Present: regular rate, normal rhythm, normal heart sounds Neurological exam: Present: alert Course Vital Signs 12/09/21 23:33 Temperature 97.9 F Pulse Rate 100 Respiratory 22 Rate Blood Pressure 163/96 O2 Sat by Pulse 98 Oximetry Medical Decision Making - Medical Decision Making Patient will be treated for sinusitis. He will follow up with ENT. He will return here for any worsening symptoms. Disposition Clinical Impression: Sinusitis Disposition: HOME SELF-CARE Condition: Good Instructions (If sedation given, give patient instructions): Sinusitis (ED) Additional Instructions: Take medications as directed. Follow up with ENT. Return to the emergency room for any worsening symptoms. Prescriptions: Amoxicillin/Potassium Clav [Augmentin 875-125 Tablet] 1 tab PO Q12HR #20 tab Loratadine [Claritin] 10 mg PO DAILY #20 tab Fluticasone Nasal [place] [Flonase Nasal [place]] 1 spray EA NOSTRIL DAILY 7 Days #16 gm methylPREDNISolone Dose Pack [Medrol Dose Pack] 4 mg PO DIRECTED #21 tab Is patient prescribed a controlled substance at d/c from ED?: No Referrals: Nato Sweet MD [Primary Care Provider] - 1-2 days Dusty Quiroz MD [STAFF PHYSICIAN] - 1-2 days Time of Disposition: :
== END 2021-12-10 01:16 | disposition home or self-care (01) ==
LOC: EC 23:30
DX: J32.9 Chronic sinusitis, unspecified (principal); I10 Essential (primary) hypertension; E78.5 Hyperlipidemia, unspecified; F17.200 Nicotine dependence, unspecified, uncomplicated; Z79.51 Long term (current) use of inhaled steroids; Z79.82 Long term (current) use of aspirin; Z79.899 Other long term (current) drug therapy
CPT/HCPCS: 99283

== ENCOUNTER → 2022-01-10 | Outpatient (CLI) | payer BC ==
--- NOTE | 2022-01-10 10:43 | CT ---
EXAMINATION TYPE: CT sinus wo con DATE OF EXAM: 01/10/2022 COMPARISON: No previous CT scan HISTORY: Recurring sinus infection CT DLP: 673.7 mGycm. Automated Exposure Control for Dose Reduction was Utilized. TECHNIQUE: CT scan of the sinuses is performed without contrast, axial images are obtained, coronal r eformatted images are also reviewed. FINDINGS: Deviated bony nasal septum convex to the right side with a bony spur and slight remodeling of the rig ht inferior turbinate. Paradoxical middle turbinates with pneumatized left vertical lamella. Patent infundibula bilaterally as well as the ostiomeatal complexes. Circumferential mucosal thickeni ng of the alveolar recesses of the maxillary sinuses, more on the left side. Intact bony boundary of the maxillary sinuses. Mucosal thickening of the right posterior ethmoid air cells. Unremarkable remainder of the ethmoid ai r cells, frontal sinus and sphenoid sinus. Patent sphenoethmoidal recesses. Clear visualized mastoid air cells. Unremarkable visualized portion of the brain and orbits. IMPRESSION: Mucosal thickening of the maxillary sinuses more on the left side with mild mucosal thick ening of the right posterior ethmoid air cells. Unremarkable remainder of the paranasal sinuses. Inci dental findings as described above.
== END | disposition home or self-care (01) ==
LOC: RADCTMAIN 09:47
PROVIDERS: ATTEND Otolaryngology
DX: J34.89 Other specified disorders of nose and nasal sinuses (principal)
CPT/HCPCS: 70486

== ENCOUNTER 2022-03-09 14:47 | Emergency (ER) | payer BC ==
[2022-03-09 14:59] VITALS: BP 145/87; PULSE 114; RESP 18; TEMP 98
[2022-03-09] MEDS ORDERED: HYDROmorphone 1 MG/ML 1 ML SYRINGE IM STA (15:36)
--- NOTE | 2022-03-09 15:37 | ED ---
Lower Extremity Injury HPI - General Chief Complaint: Extremity Injury, Lower Stated Complaint: Fall-L foot injury Time Seen by Provider: 03/09/22 15:16 Source: patient, RN notes reviewed Mode of arrival: wheelchair Limitations: physical limitation - History of Present Illness Initial Comments: This a 41-year-old male presents emergency Department with chief complaint of left ankle injury. Patient states he stepped wrong causing his ankle rolled. Patient states he felt a large pop states unable to bear weight states swollen, severely painful. Patient is known drug ALLERGIES no prior ankle injuries including surgeries. No pain distal proximal area. - Related Data Previous Rx's Medication Instructions Recorded Albuterol Inhaler [Ventolin Hfa 1 puff INHALATION RT-QID PRN #1 inh 09/13/20 Inhaler] Aspirin 81 mg PO DAILY #30 chew 09/13/20 Atorvastatin [Lipitor] 40 mg PO DAILY #30 tab 09/13/20 Azithromycin [Zithromax] 500 mg PO DAILY@1900 5 Days #5 tab 09/13/20 Cefuroxime Axetil [Ceftin] 500 mg PO BID 10 Days #20 tab 09/13/20 Famotidine [Pepcid] 20 mg PO Q12HR #60 tab 09/13/20 Metoprolol Tartrate [Lopressor] 25 mg PO DAILY #30 tab 09/13/20 Nitroglycerin Sl Tabs [Nitrostat] 0.4 mg SUBLINGUAL Q5M PRN #20 tab 09/13/20 Amoxicillin/Potassium Clav 1 tab PO Q12HR #20 tab 12/10/21 [Augmentin 875-125 Tablet] Fluticasone Nasal [place] [Flonase 1 spray EA NOSTRIL DAILY 7 Days 12/10/21 Nasal [place]] #16 gm Loratadine [Claritin] 10 mg PO DAILY #20 tab 12/10/21 methylPREDNISolone Dose Pack 4 mg PO DIRECTED #21 tab 12/10/21 [Medrol Dose Pack] Allergies Allergy/AdvReac Type Severity Reaction Status Date / Time No Known Allergies Allergy Verified 03/09/22 14:55 Review of Systems ROS Statement: Those systems with pertinent positive or pertinent negative responses have been documented in the HPI. ROS Other: All systems not noted in ROS Statement are negative. Past Medical History Past Medical History: Hyperlipidemia, Hypertension History of Any Multi-Drug Resistant Organisms: None Reported Past Surgical History: No Surgical Hx Reported Past Anesthesia/Blood Transfusion Reactions: No Reported Reaction Past Psychological History: ADD/ADHD Smoking Status: Current every day smoker Past Alcohol Use History: Occasional Past Drug Use History: None Reported General Exam Limitations: physical limitation General appearance: alert, in no apparent distress Head exam: Present: atraumatic, normocephalic, normal inspection Eye exam: Present: normal appearance, PERRL, EOMI. Absent: scleral icterus, conjunctival injection, periorbital swelling ENT exam: Present: normal exam, normal oropharynx, mucous membranes moist Neck exam: Present: normal inspection. Absent: tenderness, meningismus, lymphadenopathy Respiratory exam: Present: normal lung sounds bilaterally. Absent: respiratory distress, wheezes, rales, rhonchi, stridor Cardiovascular Exam: Present: regular rate, normal rhythm, normal heart sounds. Absent: systolic murmur, diastolic murmur, rubs, gallop, clicks Extremities exam: Present: other (Left ankle there is moderate swelling, tenderness diffusely there is no distal foot tenderness no proximal tib-fib tenderness neurovascular intact) Skin exam: Present: warm, dry, intact, normal color. Absent: rash Course Vital Signs 03/09/22 14:55 Temperature 98 F Pulse Rate 114 H Respiratory 18 Rate Blood Pressure 145/87 O2 Sat by Pulse 98 Oximetry Procedures - Orthopedic Splinting/Casting Injury #1 Side: left Lower Extremity Injury Location: short leg, ankle Lower Extremity Immobilizer: posterior splint, synthetic pre-padded splint Other Orthopedic Equipment: crutches Medical Decision Making - Medical Decision Making Patient's x-ray shows bimalleolar fracture. Patient was splinted and will follow-up with orthopedics patient was given prescription for crutches. Disposition Clinical Impression: Closed bimalleolar fracture of left ankle Disposition: HOME SELF-CARE Condition: Stable Instructions (If sedation given, give patient instructions): Ankle Fracture (ED) Additional Instructions: Please return to the Emergency Department if symptoms worsen or any other concerns. Is patient prescribed a controlled substance at d/c from ED?: No Referrals: Nato Sweet MD [Primary Care Provider] - 1-2 days Elvin Holman MD [STAFF PHYSICIAN] - 1-2 days Time of Disposition: 16:10
--- NOTE | 2022-03-09 16:06 | XR ---
Left ankle. HISTORY: Pain following trauma. COMPARISON: None. TECHNIQUE: 3 views left ankle were obtained. FINDINGS: There is a mildly displaced spiral fracture of the distal left fibula extending distally to the level of the tibial plafond. There is mild widening of the ankle mortise laterally There is a fracture of the posterior tibia involving less than 25% of the articular surface. The talus and calcaneus are int act. No abnormalities of the midfoot are identified. IMPRESSION: Bimalleolar fracture of the left ankle as described above. There is mild widening of the ankle mortis e laterally.
[2022-03-09] MEDS ORDERED: ACET/COD 300 MG/30 MG STARTER PACK 6 TAB BTL PO STA (17:19)
== END 2022-03-09 17:39 | disposition home or self-care (01) ==
LOC: EC 14:47
DX: I10 Essential (primary) hypertension (principal); F17.200 Nicotine dependence, unspecified, uncomplicated; S82.842A Displaced bimalleolar fracture of left lower leg, initial encounter for closed fracture; W19.XXXA Unspecified fall, initial encounter
CPT/HCPCS: 73610; 29515; 99283; 96372; J1170

== ENCOUNTER → 2022-03-17 | Outpatient (CLI) | payer BC ==
--- NOTE | 2022-03-17 09:00 | CT ---
EXAMINATION TYPE: CT ankle LT wo con DATE OF EXAM: 03/17/2022 INDICATION: Left ankle pain after injury x1 week ago. CT DLP: 214.9 mGy.cm Automated Exposure Control for Dose Reduction was Utilized. TECHNIQUE AND CONTRAST: CT scan of the left ankle is performed without IV contrast administration. 3-D reconstruction images were generated on an independent workstation and reviewed. COMPARISON: X-ray dated 03/09/2022 FINDINGS: Complete oblique fracture involving the distal left fibular metaphysis and extending to the anterior aspect of the lateral malleolus as well as the ankle joint space. There is a gap up to 5 mm at the fr acture site with mild posterior proximal displacement of the distal fracture fragment. Tiny bone fragments/soft tissue calcification seen adjacent to the fracture. Slight narrowi ng of the lateral aspect of the ankle mortise. A nondisplaced fracture of the posterior malleolus ext ending to the tibiotalar articulation. No other definite acute fracture line identified. Slight widen ing of the posterior aspect of the distal tibiofibular articulation. Underlying ligamentous injury ca nnot be excluded. Unremarkable talar dome. Unremarkable medial malleolus. Soft tissue swelling surrounding the ankle nereida int. Inferior calcaneal spur with posterior calcaneal enthesophytosis at the insertion of the [place] s tendon. No sizable ankle joint effusion. IMPRESSION: Bimalleolar fracture as detailed above, for orthopedic consultation.
== END | disposition home or self-care (01) ==
LOC: RADCTMAIN 07:03
PROVIDERS: ATTEND Podiatrist
DX: S82.842A Displaced bimalleolar fracture of left lower leg, initial encounter for closed fracture (principal); M77.32 Calcaneal spur, left foot; X58.XXXA Exposure to other specified factors, initial encounter

== ENCOUNTER → 2024-07-21 | Outpatient (CLI) | payer OTHER ==
--- NOTE | 2024-07-21 17:42 | CA ---
Exercise Stress Test Report Name: Dean Barksdale Exam Date: 07/21/2024 11:05 Exam Location: [place] Stress Ht (in): 66 Wt (lb): 203 BSA: 2.01 Ordering Phys: Nato Sweet MD Referring Phys: WINIFRED Technologist: Kyle Lawton Age: 44 Gender: M : 1980 Procedure CPT: Indications: R07.9 CHEST PAIN ICD-10 Codes: Patient History: Medications: Meds past 24 hrs: Pretest Chest Pain: STRESS TEST Cirilo Protocol Exercise Duration (min:sec): 10:[address] Depressions (mm): Angina Score: Huitron Score: Resting HR (bpm): 103 Peak HR (bpm): 159 Resting BP (mmHg): 125 / 58 Peak BP (mmHg): 193 / 72 MPHR: 178 Target HR: 151 % MPHR: 89 METS: 12.1 Total Dose: Peak Dose: Atropine: Double Product: 33830 BP Response: Stress Termination: Reached target heart rate Stress Symptoms: No chest pain or symptoms Stress Summary: ECG ANALYSIS Resting ECG: Normal sinus rhythm normal axis normal intervals Stress ECG: Patient exercised on Cirilo protocol for 10 minutes achieving 11 metas 85% of predicted maximal heart rate without chest pain or diagnostic ST segment depression CONCLUSIONS Excellent exercise tolerance Negative stress test by EKG criteria Dr. Ted Tolbert MD (Electronically Signed) Final Date: 21 July 2024 17:41
== END | disposition home or self-care (01) ==
LOC: RADNMMAIN 10:44
PROVIDERS: ATTEND Family Medicine
DX: R07.9 Chest pain, unspecified
CPT/HCPCS: 93017